=== PATIENT | female | born 1990 | race African-American/Black ===

== ENCOUNTER 2021-02-08 13:30 | Inpatient (IN) | payer MEDICAID, SELFPAY ==
[2021-02-08 13:54] VITALS: BP 142/92; PULSE 92; RESP 18; TEMP 36.3; O2SAT 98
[2021-02-08] MEDS: OLANZapine 5 mg ODT PO (15:18)
[2021-02-08] MEDS: hyDROXYzine 25 mg Capsule 50 MG PO (19:07)
[2021-02-08] MEDS: trazodone 50 mg Tablet PO (19:07)
[2021-02-08 20:44] VITALS: BP 133/87; PULSE 102; RESP 21; TEMP 37.2; O2SAT 99
[2021-02-09] MEDS: trazodone 50 mg Tablet PO (00:02)
[2021-02-09] MEDS: hyDROXYzine 25 mg Capsule 50 MG PO ×2 (04:38→13:42)
--- NOTE | 2021-02-09 04:40 | PC.NURSE ---
pt requesting can i have a med? Advised she can have Vistaril, pt agrred. Vistaril 50mg po given.
[2021-02-09 06:00] VITALS: BP 135/89; PULSE 116; RESP 18; TEMP 36.9; O2SAT 94
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
[2021-02-09] MEDS: OLANZapine 5 mg ODT PO ×2 (12:16→17:31)
--- NOTE | 2021-02-09 12:16 | PC.NURSE ---
PRN ZYPREXA ZYDIS 5 MG GIVEN PO PER PT C/O AGITATION. PT UPSET SHE ISN'T GETTING DISCHARGED RIGHT NOW, STATED SHE FEELS ANGRY LIKE SHE MIGHT NEED TO GO OUTSIDE.
--- NOTE | 2021-02-09 13:43 | PC.NURSE ---
PRN VISTARIL 50 MG GIVEN PO PER PT C/O ANXIETY. PT UP TO THE DESK SEVERAL TIMES, PRESSURED SPEECH, STATED I NEED SOMETHING LIKE RIGHT NOW! PRN ZYPREXA ZYDIS GIVEN PREVIOUSLY NOT EFFECTIVE
[2021-02-09 14:00] VITALS: BP 129/81; PULSE 102; RESP 18; TEMP 36.2; O2SAT 95
[2021-02-09] MEDS: ARIPiprazole 10 mg Tablet PO (17:31)
--- NOTE | 2021-02-09 17:32 | PC.NURSE ---
PRN ZYPREXA ZYDIS 5 MG GIVEN PO PER PHYSICIAN (Augusto LAKHANI) REQUEST & PT CONT C/O AGITATION/ANXIETY. PT UP TO THE DESK, REQUESTING ANY AND ALL PRN MEDICATIONS SHE CAN HAVE CONSTANTLY. WILL CONT TO MONITOR
[2021-02-09 20:14] VITALS: BP 164/94; PULSE 105; RESP 17; TEMP 37.1; O2SAT 95
[2021-02-09] MEDS: trazodone 100 mg Tablet PO (20:29)
[2021-02-09] MEDS: OLANZapine 10 mg TABLET 20 MG PO (20:29)
[2021-02-09] MEDS: prazosin 1 mg Capsule 2 MG PO (20:29)
[2021-02-09] MEDS: benztropine 1 mg Tablet PO (20:29)
[2021-02-09] MEDS: divalproex ER 500 mg Tablet (24H) 2000 MG PO (20:29)
[2021-02-10 06:00] VITALS: BP 145/91; PULSE 86; RESP 22; TEMP 37; O2SAT 99
[2021-02-10] MEDS: OLANZapine 10 mg TABLET PO (06:28)
[2021-02-10] MEDS: paliperidone palmitate 234 mg Syringe IM (09:09)
[2021-02-10] MEDS: cetirizine 10 mg Tablet PO (09:10)
[2021-02-10] MEDS: levothyroxine 50 mcg Tablet PO (09:10)
[2021-02-10] MEDS: metformin 500 mg Tablet 1000 MG PO (09:10)
[2021-02-10] MEDS: ARIPiprazole 10 mg Tablet PO (09:10)
[2021-02-10] MEDS: nicotine 21 mg Patch 1 PATCH TRANSDERMA (09:43)
[2021-02-10] MEDS: nicotine 2 mg Gum BUCCAL (09:43)
[2021-02-10] MEDS: sertraline 50 mg Tablet PO (11:50)
[2021-02-10 14:00] VITALS: BP 135/76; PULSE 115; RESP 16; TEMP 36.2; O2SAT 94
[2021-02-10] MEDS: hyDROXYzine 25 mg Capsule 50 MG PO (15:00)
[2021-02-10] MEDS: OLANZapine 5 mg ODT PO (15:00)
[2021-02-10] MEDS: acetaminophen 325 mg Tablet 650 MG PO (15:00)
--- NOTE | 2021-02-10 15:06 | P.PN_ITS ---
Subjective NPU Subjective: Interval history: Patient presents today focused on discharge but open to the conversation we had was with the following. We discussed the fact that it seems like she is benefiting from the Abilify but we also have significant concern for polypharmacy. She was able to share that her personal correction has their provider come to her and so we will reach out to them and discuss either whether they have a recommendation for which other medication for us to discontinue or they will be prepared if we send her with a current medication arrangement to move towards removing something given the level of polypharmacy. She was agreeable to that and reports that she is having less perceptual disturbances. Mental Status Exam MSE Comments: This is an obese, female, with hospital scrubs on with limited grooming, and eye contact. No abnormal movements except for mild psychomotor agitation. Cooperative with exam in no acute distress. Speech was normal rate and volume. Mood described as better; affect less kinetic. Thought process, organized. Thought content: patient denied any suicidal or homicidal ideation, there were no delusions noted, but she did endorse paranoia. She denied auditory and visual hallucinations. Attention and concentration were intact, and memory seemed mostly reliable, but none were formally tested. She is alert and oriented times three. Insight and judgment are limited and impulse control is limited. Vitals/I&O/Wt Last Vital Signs Temp 98.1 F 02/10/21 20:32 Pulse 82 02/10/21 20:32 Resp 19 H 02/10/21 20:32 BP 141/87 02/10/21 20:32 Pulse Ox 99 02/10/21 20:32 A&P Assessment and plan (1) Schizoaffective disorder: Status: Acute Additional A&P Information This is a 30-year-old, , female, with a long history of psychotic disorder, and mental health treatment for the past fourteen years, going on fifteen years, who presents reporting that she is having breakthrough symptoms but is in a personal correction, getting her medications daily. 1. We will reach out to the personal correction and see if we can discuss a plan for the ongoing management of her medication. 2. Continue current medication. 3. Encourage individual, group, and milieu therapy. 4. Continue q-15 minute checks for safety. Involuntary Hold Information 96 Hour Hold: 96 Hour Involuntary Admission: Yes 96 Hour Hold Ending Date: 02/08/21 96 Hour Hold Ending Time: 12:05 Attestations NPU Medical Necessity Statement*: Inpatient hospitalization is medically necessary and the clinically appropriate intervention, at this time. We will monitor medications and make changes as indicated. Likely length of stay is 1-3 days. Coding Level of Care Code Acute Glue Reel Operator for Pardeepg Randyd Diagnoses Schizoaffective disorder F25.9
[2021-02-10 20:32] VITALS: BP 141/87; PULSE 82; RESP 19; TEMP 36.7; O2SAT 99
[2021-02-10] MEDS: prazosin 1 mg Capsule 2 MG PO (21:11)
[2021-02-10] MEDS: divalproex ER 500 mg Tablet (24H) 2000 MG PO (21:11)
[2021-02-10] MEDS: benztropine 1 mg Tablet PO (21:11)
[2021-02-10] MEDS: trazodone 100 mg Tablet PO (21:11)
[2021-02-10] MEDS: OLANZapine 10 mg TABLET 20 MG PO (21:11)
[2021-02-11 06:00] VITALS: BP 142/82; PULSE 93; RESP 23; TEMP 36.6; O2SAT 97
[2021-02-11] MEDS: OLANZapine 10 mg TABLET PO (07:16)
[2021-02-11] MEDS: levothyroxine 50 mcg Tablet PO (09:26)
[2021-02-11] MEDS: metformin 500 mg Tablet 1000 MG PO (09:26)
[2021-02-11] MEDS: cetirizine 10 mg Tablet PO (09:26)
[2021-02-11] MEDS: ARIPiprazole 10 mg Tablet PO (09:27)
[2021-02-11] MEDS: sertraline 50 mg Tablet PO (12:30)
[2021-02-11] MEDS: ondansetron 4 MG Tablet PO (12:30)
[2021-02-11 13:39] VITALS: BP 146/82; PULSE 84; RESP 16; TEMP 36.9; O2SAT 97
[2021-02-11] MEDS: hyDROXYzine 25 mg Capsule 50 MG PO (16:10)
--- NOTE | 2021-02-11 16:14 | P.PN_ITS ---
Subjective NPU Subjective: Interval history: Gretchen presents today reporting that things are going better. She continues to have her quirks like today she gave me a sheet of paper and said that it was somehow like a scratch and sniff and when you did that it would give you access to money that she could use everywhere. Otherwise she denied any psychiatric symptoms hearing voices or seeing anything. She reports being excited about returning back to her personal halfway and we discussed the likelihood of discharge tomorrow. Mental Status Exam MSE Comments: This is an obese, female, with hospital scrubs on with limited grooming, and eye contact. No abnormal movements. Cooperative with exam in no acute distress. Speech was normal rate and volume. Mood described as better; affect less kinetic. Thought process, organized. Thought content: patient denied any suicidal or homicidal ideation, there were no delusions noted, but she did endorse resolving paranoia. She denied auditory and visual hallucinations. Attention and concentration were intact, and memory seemed mostly reliable, but none were formally tested. She is alert and oriented times three. Insight and judgment are limited and impulse control is limited. Vitals/I&O/Wt Last Vital Signs Temp 97.8 F 02/11/21 20:47 Pulse 104 H 02/11/21 20:47 Resp 21 H 02/11/21 20:47 BP 158/89 02/11/21 20:47 Pulse Ox 95 02/11/21 20:47 A&P Additional A&P Information (1) Schizoaffective disorder: Additional A&P Information This is a 30-year-old, , female, with a long history of psychotic disorder, and mental health treatment for the past fourteen years, going on fifteen years, who presents reporting that she is having breakthrough symptoms but is in a personal halfway, getting her medications daily. 1. We will reach out to the personal halfway and see if we can discuss a plan for the ongoing management of her medication. 2. Continue current medication. 3. Encourage individual, group, and milieu therapy. 4. Continue q-15 minute checks for safety. Involuntary Hold Information 96 Hour Hold: 96 Hour Involuntary Admission: Yes 96 Hour Hold Ending Date: 02/08/21 96 Hour Hold Ending Time: 12:05 Attestations NPU Medical Necessity Statement*: Inpatient hospitalization is medically necessary and the clinically appropriate intervention, at this time. We will monitor medications and make changes as indicated. Likely length of stay is 1-3 days. Likely discharge tomorrow. Coding Level of Care Code Acute Prop Cutter for Jeronimo Hannon
[2021-02-11] MEDS: nicotine 2 mg Gum BUCCAL (19:01)
[2021-02-11 20:47] VITALS: BP 158/89; PULSE 104; RESP 21; TEMP 36.6; O2SAT 95
[2021-02-11] MEDS: divalproex ER 500 mg Tablet (24H) 2000 MG PO (20:54)
[2021-02-11] MEDS: benztropine 1 mg Tablet PO (20:54)
[2021-02-11] MEDS: OLANZapine 10 mg TABLET 20 MG PO (20:54)
[2021-02-11] MEDS: trazodone 100 mg Tablet PO (20:54)
[2021-02-11] MEDS: prazosin 1 mg Capsule 2 MG PO (20:54)
[2021-02-11] MEDS: loperamide 2 mg Capsule PO (21:01)
[2021-02-11] MEDS: vitamin A & D oint 1 APPLIC TOPICAL (22:01)
[2021-02-11] MEDS: haloperidol 5 mg Tablet PO (23:27)
--- NOTE | 2021-02-12 01:41 | PC.NURSE ---
PRN 2327 Administered Haldol 5mg for severe agitation. Will continue to monitor pt. Pt is verbalizing that some one else inside her body is stealing the medications when she takes them. Pt is yelling and cussing at staff and banging her door to her room.
--- NOTE | 2021-02-12 02:30 | PC.NURSE ---
prn's offered Pt was becoming loud in her room, IUSS ACOUSTIC ANALYST went to check on pt. Pt walked briskly to Nursing Station. TAKE AWAY ATTENDANT spoke with pt, asked if she would be interested in taking a shot to calm down and get some sleep. Pt then asked Nurse if she was a He or an IT??? or are you a HESHE??? Then said NO!!! Because I think that you wanna FUCK ME in my sleep!! Nurse then replied that she was just trying to help the pt to get some much needed rest. Will continue to monitor pt until end of shift.
[2021-02-12] MEDS: OLANZapine 10 mg TABLET PO (05:33)
[2021-02-12] MEDS: nicotine 2 mg Gum BUCCAL (05:36)
[2021-02-12 06:00] VITALS: BP 148/89; PULSE 89; RESP 22; TEMP 36.6; O2SAT 95
[2021-02-12] MEDS: levothyroxine 50 mcg Tablet PO (08:39)
[2021-02-12] MEDS: metformin 500 mg Tablet 1000 MG PO (08:39)
[2021-02-12] MEDS: cetirizine 10 mg Tablet PO (08:39)
[2021-02-12] MEDS: ARIPiprazole 10 mg Tablet PO (08:39)
[2021-02-12] MEDS: guaiFENesin-dextromethorphan UDC 10 mL 5 ML PO (08:41)
--- NOTE | 2021-02-12 08:42 | PC.NURSE ---
prn Robatussin 5 ml given po per pt c/o cough
[2021-02-12] MEDS: sertraline 50 mg Tablet PO (11:55)
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
--- NOTE | 2021-02-12 13:34 | PC.NURSE ---
discharge meds called into [facility] in [place], [place] @ [phone]. spoke to Annika 1. Abilify 10 mg po Daily #30 with 1 refill 2. Hydroxyzine pamoate 50 mg po q6h PRN: anxiety #120 with 1 refill
[2021-02-12 14:00] VITALS: BP 148/89; PULSE 89; RESP 22; TEMP 36.6; O2SAT 95
== END 2021-02-12 15:14 | disposition home or self-care (01) | DRG 885 ==
PROVIDERS: Admitting Provider Psychiatry & Neurology Psychiatry; Visit Provider Psychiatry & Neurology Psychiatry
DX: F25.9 Schizoaffective disorder, unspecified (principal); Z68.41 Body mass index [BMI] 40.0-44.9, adult; F17.210 Nicotine dependence, cigarettes, uncomplicated; F12.10 Cannabis abuse, uncomplicated; E66.9 Obesity, unspecified; Z79.890 Hormone replacement therapy
CPT/HCPCS: 96372; Q0162